=== PATIENT | male | born 1955 | race Caucasian/White ===

== ENCOUNTER 2019-01-09 15:00 | Inpatient (IN) ==
--- NOTE | 2019-01-09 16:00 | ED ---
HPI General Chief Complaint: Respiratory Symptoms Stated Complaint: cough congestion headache Time Seen by Provider: 01/09/19 15:50 Source: patient Mode of arrival: ambulatory Limitations: no limitations History of Present Illness HPI Narrative: 63-year-old male presents the ED for evaluation of 2-week history of cough. He states the cough is productive but "I cannot get it out." States "I was up all night coughing last night." He is a current smoker. He endorses feeling feverish but has not measured her temperature at home. He states that over the last few days he has had 8/10 aching pain in the left ear. No alleviating or exacerbating factors reported. He saw an urgent care provider at the beginning of this illness and took a course of steroids and an unknown antibiotic with no improvement of symptoms. Related Data Home Medications Medication Instructions Recorded Confirmed Unable to Obtain Home Meds 01/09/19 01/09/19 Allergies Allergy/AdvReac Type Severity Reaction Status Date / Time clarithromycin [From Biaxin] Allergy Severe Rash Verified 01/09/19 15:14 erythromycin base Allergy Severe Rash Verified 01/09/19 15:14 Penicillins Allergy Severe Rash Verified 01/09/19 15:12 [facility] Medical History Medical History Anxiety (Acute) Elevated cholesterol (Acute) GERD (gastroesophageal reflux disease) (Acute) Hearing difficulty of both ears (Acute) Hypertension (Acute) Surgical History Surgical History Hx of cholecystectomy (Acute) Hx of tonsillectomy (Acute) Social History Social History Substance History: No History of Abuse Smoking Status: Former smoker Tobacco Type: Cigarettes How Often Do You Have a Drink Containing Alcohol: Never Recent Travel in [facility] within the Last 8 Weeks: No Recent Out of Country Travel within the Last 8 Weeks: No Immunization History Tetanus Immunization: <5 Years Exam Narrative Exam Narrative: GENERAL: Ill-appearing white male in no acute distress. SKIN: Focused skin assessment warm/dry. HEAD: Atraumatic. Normocephalic. EYES: Pupils equal and round. No scleral icterus. No injection or drainage. ENT: Left tympanic membrane is erythematous, mildly bulging,consistent with otitis media. No nasal bleeding or discharge. Mucous membranes pink and moist. Oropharynx with mild posterior erythema. NECK: Trachea midline. No JVD. CARDIOVASCULAR: Regular rate and rhythm. No murmur appreciated. RESPIRATORY: No accessory muscle use. No crackles or wheezes. Breath sounds mildly diminished in the bases bilaterally. GASTROINTESTINAL: Abdomen soft, non-tender, nondistended. Hepatic and splenic margins not palpable. MUSCULOSKELETAL: No obvious deformities. No clubbing. No cyanosis. No edema. NEUROLOGICAL: Awake and alert. No obvious cranial nerve deficits. Motor grossly within normal limits. Normal speech. PSYCHIATRIC: Appropriate mood and affect; insight and judgment normal. Course Initial Documented Vital Signs Temperature 99.8 F H 01/09/19 15:14 Pulse Rate 108 H 01/09/19 15:14 Respiratory Rate 20 01/09/19 15:14 Blood Pressure 138/76 01/09/19 15:14 Pulse Oximetry 94 L 01/09/19 15:14 Last Documented Vital Signs Temperature 99.8 F H 01/09/19 15:14 Pulse Rate 107 H 01/09/19 17:33 Respiratory Rate 16 01/09/19 17:33 Blood Pressure 141/83 H 01/09/19 17:33 Pulse Oximetry 93 L 01/09/19 17:33 Medical Decision Making MONICA Attestation MONICA supervised visit: Yes Attestation: Patient was not seen by me or presented by advance practitioner, I was available for consult MDM Narrative Medical decision making narrative: 63-year-old male presents the ED for evaluation of 2-week history of cough, subjective fevers, left ear pain. Temp 99.8, pulse 108, pulse oximetry 94% with a respiratory rate of 20 on room air on presentation. Physical exam reveals an ill-appearing white male in no acute distress. There is a otitis media of the left ear and mildly reduced lung sounds in the bases without crackles or wheezes. Patient is a current smoker. X-ray reveals bilateral mostly basilar airspace disease most characteristic of bronchopneumonia per radiology read. IV was established. Blood cultures were obtained. Patient was administered IV fluids, Tylenol and Levaquin. No leukocytosis on CBC. Lactic acid 2.8. Pulse 107, respiratory rate 16, O2 saturations 93% on room air on recheck. Patient's agreeable to admission. I spoke with Dr. Lopez who agrees to accept the patient to the medicine service. Please see medicine notes for disposition. Medical Screen Exam Complete: Yes Emergency Medical Condition: Yes Differential Diagnosis Differential Diagnosis: Pneumonia versus failed outpatient treatment versus otitis media versus other Lab Data Result diagrams: 01/09/19 16:52 01/09/19 16:52 Lab Results 01/09/19 01/09/19 01/09/19 Range/Units 16:52 16:52 16:52 CBC w Diff Auto diff final WBC 9.9 (4.0-11.0) th/mm3 RBC 4.92 (4.50-5.90) mil/mm3 Hgb 15.4 (13.0-17.0) gm/dL Hct 46.3 (39.0-51.0) % MCV 94.2 (80.0-100.0) fL MCH 31.3 (27.0-34.0) pg MCHC 33.2 (32.0-36.0) % RDW 12.8 (11.6-17.2) % Plt Count 301 (150-450) th/mm3 MPV 8.3 (7.0-11.0) fL Neut % (Auto) 78.5 H (16.0-70.0) % Lymph % (Auto) 9.7 (9.0-44.0) % Marion % (Auto) 8.3 H (0.0-8.0) % Eos % (Auto) 0.2 (0.0-4.0) % Baso % (Auto) 3.3 H (0.0-2.0) % Neut # (Auto) 7.8 H (1.8-7.7) th/mm3 Lymph # (Auto) 1.0 (1.0-4.8) th/mm3 Marion # (Auto) 0.8 (0.0-0.9) th/mm3 Eos # (Auto) 0.0 (0.0-0.4) th/mm3 Baso # (Auto) 0.3 H (0.0-0.2) th/mm3 WBC Differential . Differential Comment . Sodium 137 (136-145) meq/L Potassium 3.4 L (3.5-5.1) meq/L Chloride 98 (98-107) meq/L Carbon Dioxide 29.6 (21.0-32.0) meq/L Anion Gap 9 (5-15) meq/L BUN 12 (7-18) mg/dL Creatinine 1.10 (0.60-1.30) mg/dL Estimated GFR 68 L (>89) mL/min Random Glucose 153 H (74-106) mg/dL Lactic Acid 2.8 H (0.4-2.0) mmol/L Calcium 9.3 (8.5-10.1) mg/dL Total Bilirubin 1.8 H (0.2-1.0) mg/dL AST 70 H (15-37) U/L ALT 92 H (12-78) U/L Alkaline Phosphatase 162 H (45-117) U/L Total Protein 7.8 (6.4-8.2) g/dL Albumin 3.0 L (3.4-5.0) g/dL Imaging Data Radiologist's impression: Chest X-Ray 01/09/19 15:55 CONCLUSION: Bilateral mostly basilar airspace disease most characteristic of bronchopneumonia. Discharge Plan Discharge Disposition Patient Disposition: ED Admit(ED Internal Use Only) Discharge Order Discharge Orders: ED Use Only Admit Order (Routine); Ordered 01/09/19 Ordered By: Yani Aguero Physicians Team ED Provider: Ajit Almanza ED Midlevel Provider: Yani Aguero Primary Care Provider: UNKNOWN, Attending Provider: Ruperto Lopez Status ED Status: Admitted Observation Patient
--- NOTE | 2019-01-09 16:24 | XR ---
EXAM DATE: 01/09/2019 4:18 PM EST AGE/SEX: 63 years / Male INDICATIONS: Cough. Congestion. CLINICAL DATA: This is the patient's initial encounter. Patient reports that signs and symptoms have been present for 2 weeks and indicates a pain score of 0/10. MEDICAL/SURGICAL HISTORY: None. None. COMPARISON: No prior exams available for comparison. FINDINGS: There is some basilar interstitial prominence in the lungs. Differential diagnosis includes bronchopn eumonia or less likely edema. Heart size within normal limits. Tortuous aorta. No significant effusio n. No pneumothorax. CONCLUSION: Bilateral mostly basilar airspace disease most characteristic of bronchopneumonia. Electronically signed by: Ajit King MD Board Certified Radiologist 01/09/2019 4:23 PM EST
[2019-01-09] MEDS ORDERED: Sod Chloride 0.9% Inj 1,000 ML IV.SIG ONE (16:31)
[2019-01-09] MEDS ORDERED: Acetaminophen 325 MG Tablet PO ONE (16:34)
[2019-01-09 16:59] LABS: Baso # (Auto) 0.3 th/mm3 (0.0-0.2); Baso % (Auto) 3.3 % (0.0-2.0); Eos % (Auto) 0.2 % (0.0-4.0); Hematocrit 46.3 % (39.0-51.0); Hemoglobin 15.4 gm/dL (13.0-17.0); Lymph % (Auto) 9.7 % (9.0-44.0); Mean Corpuscular HGB Conc 33.2 % (32.0-36.0); Mean Corpuscular Hemoglobin 31.3 pg (27.0-34.0); Mean Corpuscular Volume 94.2 fL (80.0-100.0); Mean Platelet Volume 8.3 fL (7.0-11.0); Mono # (Auto) 0.8 th/mm3 (0.0-0.9); Mono % (Auto) 8.3 % (0.0-8.0); Neut # (Auto) 7.8 th/mm3 (1.8-7.7); Neut % (Auto) 78.5 % (16.0-70.0); Platelet Count 301 th/mm3 (150-450); Red Blood Count 4.92 mil/mm3 (4.50-5.90); Red Cell Distribution Width 12.8 % (11.6-17.2); White Blood Count 9.9 th/mm3 (4.0-11.0)
[2019-01-09 17:12] LABS: Chloride 98 meq/L (98-107); Potassium 3.4 meq/L (3.5-5.1); Sodium 137 meq/L (136-145)
[2019-01-09 17:15] LABS: Calcium 9.3 mg/dL (8.5-10.1)
[2019-01-09 17:16] LABS: Anion Gap 9 meq/L (5-15); Blood Urea Nitrogen 12 mg/dL (7-18); Carbon Dioxide 29.6 meq/L (21.0-32.0); Glucose,Random 153 mg/dL (74-106)
[2019-01-09 17:19] LABS: Alanine Aminotransferase 92 U/L (12-78); Aspartate Aminotransferase 70 U/L (15-37); Glomerular Filtration Rate 68 mL/min (>89)
[2019-01-09 17:21] LABS: Total Protein 7.8 g/dL (6.4-8.2)
[2019-01-09 17:22] LABS: Alkaline Phosphatase 162 U/L (45-117)
[2019-01-09] MEDS ORDERED: Sodium Chlor 0.9% Inj 500 ML IV.SIG ONE (17:36)
[2019-01-09] MEDS: Heparin - SQ 10,000 UNITS/ML Vial SQ SCH (22:28)
[2019-01-09] MEDS: Acetaminophen 325 MG Tablet PO PRN (22:29)
[2019-01-10] MEDS: Acetaminophen 325 MG Tablet PO PRN ×2 (05:51→23:13)
[2019-01-10 06:26] LABS: Baso # (Auto) 0.1 th/mm3 (0.0-0.2); Baso % (Auto) 0.9 % (0.0-2.0); Eos % (Auto) 0.4 % (0.0-4.0); Hematocrit 41.8 % (39.0-51.0); Hemoglobin 14.2 gm/dL (13.0-17.0); Lymph # (Auto) 1.1 th/mm3 (1.0-4.8); Lymph % (Auto) 12.9 % (9.0-44.0); Mean Corpuscular HGB Conc 34.1 % (32.0-36.0); Mean Corpuscular Hemoglobin 32.2 pg (27.0-34.0); Mean Corpuscular Volume 94.5 fL (80.0-100.0); Mean Platelet Volume 8.8 fL (7.0-11.0); Mono % (Auto) 11.8 % (0.0-8.0); Neut # (Auto) 6.4 th/mm3 (1.8-7.7); Platelet Count 242 th/mm3 (150-450); Red Blood Count 4.42 mil/mm3 (4.50-5.90); Red Cell Distribution Width 12.8 % (11.6-17.2); White Blood Count 8.6 th/mm3 (4.0-11.0)
[2019-01-10 06:28] LABS: Chloride 101 meq/L (98-107); Potassium 3.3 meq/L (3.5-5.1); Sodium 138 meq/L (136-145)
[2019-01-10 07:04] LABS: Alanine Aminotransferase 72 U/L (12-78); Albumin 2.4 g/dL (3.4-5.0); Alkaline Phosphatase 138 U/L (45-117); Anion Gap 8 meq/L (5-15); Aspartate Aminotransferase 48 U/L (15-37); Blood Urea Nitrogen 11 mg/dL (7-18); Calcium 8.8 mg/dL (8.5-10.1); Glomerular Filtration Rate 83 mL/min (>89); Glucose,Random 107 mg/dL (74-106); Total Protein 6.4 g/dL (6.4-8.2)
[2019-01-10] MEDS: Heparin - SQ 10,000 UNITS/ML Vial SQ SCH ×3 (10:18→21:21)
[2019-01-10] MEDS: Lactobacillus Acidophilus/L. Spores Tablet PO SCH ×3 (10:19→17:14)
--- NOTE | 2019-01-10 11:53 | P.HPIM ---
History of Present Illness Primary Care Physician: UNKNOWN Chief Complaint: Worsening Cough History of Present Illness: Mr. Freeman is a 63-year-old male. He came in the hospital reporting worsening cough with hypertensive emesis. As an outpatient he had been treated for suspected bronchitis with Cefdinir. It appears that this treatment has failed. We find the patient has community-acquired pneumonia. Levaquin will be started as a treatment. He still having respiratory complaints including shortness of breath and cough. At time of admit he was tachycardic but he did not meet septic criteria. He does meet criteria for outpatient treatment failure. Close monitoring to ensure no resistance will be needed. No other complaints at this time. Review of Systems Constitutional: No fevers, no chills no night sweats, no fatigue, no weakness Eyes: No eye pain, no blurry vision, no loss of vision ENT: No sore throat, no ear pain, no rhinorrhea Cardiovascular: No chest pain, no tachycardia, no palpitations, no syncope Respiratory: No wheezing, cough, shortness of breath Gastrointestinal: No abdominal pain, no black tarry stools, no bright red blood per rectum, no vomiting, no diarrhea Musculoskeletal: No joint pain, no muscle cramps, no stiffness Integumentary: No rash, no ulcers, no drainage Neurologic: No sensory loss, no loss of motor function, no dizziness Psychiatric: No behavioral changes, no hallucinations, no suicidal ideations PMF Medical History Medical History Anxiety (Acute) Elevated cholesterol (Acute) GERD (gastroesophageal reflux disease) (Acute) Hearing difficulty of both ears (Acute) Hypertension (Acute) Surgical History Surgical History Hx of cholecystectomy (Acute) Hx of tonsillectomy (Acute) Family History Family History Other Osteoarthritis Social History Social History Substance History: No History of Abuse Second Hand Smoke Exposure: No Smoking Status: Former smoker Tobacco Type: Cigars How Often Do You Have a Drink Containing Alcohol: Never Recent Travel in [place] within the Last 8 Weeks: No Recent Out of Country Travel within the Last 8 Weeks: No Immunization History Tetanus Immunization: <5 Years Hx Influenza Vaccine This Season: No Medications and Allergies Allergies Allergy/AdvReac Type Severity Reaction Status Date / Time clarithromycin [From Biaxin] Allergy Severe Rash Verified 01/09/19 15:14 erythromycin base Allergy Severe Rash Verified 01/09/19 15:14 Penicillins Allergy Severe Rash Verified 01/09/19 15:12 Home Medications Medication Instructions Recorded Confirmed Type cefdinir 300 mg PO Q12H 01/10/19 01/10/19 History Active Medications: Active Medications Acetaminophen (Tylenol) 650 mg PO Q4H PRN PRN Reason: Temp > 100.4 Last Admin: 01/10/19 05:51 Dose: 650 mg Al Hydroxide/Mg Hydroxide (Milk Of Gaurav Moreno) 30 ml PO Q12H PRN PRN Reason: Mild Constipation Albuterol (Albuterol Neb (Prn)) 2.5 mg NEB Q4HR NEB PRN PRN Reason: Dyspnea or Wheeze Alprazolam (Xanax) 0.25 mg PO Q6H PRN PRN Reason: ANXIETY Heparin Sodium (Porcine) (Heparin Inj) 5,000 units SQ Q12HR [facility] Last Admin: 01/10/19 10:18 Dose: Not Given Levofloxacin/Dextrose (Levaquin 750 Mg Premix Inj) 150 mls @ 100 mls/hr IV.SIG Q24H [facility] Lactobacillus Acidophilus (Lactinex) 1 tab PO TID [facility] Last Admin: 01/10/19 10:19 Dose: 1 tab Ondansetron HCl (Zofran Inj) 4 mg IV.PUSH Q6H PRN PRN Reason: NAUSEA OR VOMITING Last Admin: 01/09/19 18:36 Dose: 4 mg Sodium Chloride (Ns Flush) 2 ml IV.FLUSH BID [facility] Last Admin: 01/10/19 10:19 Dose: 2 ml Sodium Chloride (Ns Flush) 2 ml IV.FLUSH PRN PRN PRN Reason: FLUSH AFTER USING IV ACCESS Physical Exam Vital signs: Vital Signs 01/09/19 15:14 01/09/19 16:30 01/09/19 17:33 Temperature 99.8 F H Pulse Rate 108 H 107 H Respiratory Rate 20 16 Blood Pressure 138/76 141/83 H Pulse Oximetry 94 L 95 93 L 01/09/19 19:14 01/09/19 19:15 01/09/19 20:00 Temperature 98.9 F 97.3 F L Pulse Rate 98 H 98 H Respiratory Rate 20 18 Blood Pressure 150/88 H 152/96 H Pulse Oximetry 93 L 93 L 93 L 01/09/19 20:25 01/10/19 00:00 01/10/19 04:00 Temperature 99.3 F 99.9 F H Pulse Rate 105 H 89 92 H Respiratory Rate 18 18 Blood Pressure 122/68 133/74 Pulse Oximetry 92 L 92 L 01/10/19 08:00 Temperature 98.3 F Pulse Rate 89 Respiratory Rate 20 Blood Pressure 139/85 Pulse Oximetry 94 L Intake & Output 01/09/19 01/10/19 01/10/19 18:59 06:59 18:59 Intake Total 1650 / 1650 480 / 480 Balance 1650 / 1650 480 / 480 Weight 80.6 kg 80.6 kg Intake: IV 1650 / 1650 Levaquin 750 mg Premix Inj 150 150 / 150 ML @ 100 mls/hr IV.SIG ONCE ONE Rx#:[id number] NS Inj 1,000 ML @ Wide Open IV. 1000 / 1000 SIG BOLUS ONE Rx#:[id number] NS Inj 500 ML @ Wide Open IV. 500 / 500 SIG BOLUS ONE Rx#:[id number] Oral Supplement 480 / 480 Other: # Voids 2 Narrative: GENERAL: NAD, A&Ox3 HEAD: Normocephalic. NECK: Supple, trachea midline. No lymphadenopathy. EYES: No scleral icterus. No injection or drainage. CARDIOVASCULAR: Regular rate and rhythm without murmurs, gallops, or rubs. RESPIRATORY: Breath sounds equal bilaterally. No accessory muscle use. Bilateral rhonchi. GASTROINTESTINAL: Abdomen soft, non-tender, nondistended. MUSCULOSKELETAL: No cyanosis, or edema. SKIN: Warm and dry. NEURO: No focal neurological deficits. Results Labs CBC & Chem 7: 01/10/19 05:40 01/10/19 05:40 Imaging Impressions Chest X-Ray 01/09/19 15:55 CONCLUSION: Bilateral mostly basilar airspace disease most characteristic of bronchopneumonia. Caprini VTE Risk Assessment Caprini VTE Risk Assessment: No/Low Risk (score <= 1) Caprini Risk Assessment Model: Point Value = 1 Point Value = 2 Point Value = 3 Point Value = 5 Age 41-60 Minor surgery BMI > 25 kg/m2 Swollen legs Varicose veins or History of unexplained or recurrent spontaneous Oral contraceptives or hormone replacement Sepsis (< 1 month) Serious lung disease, including pneumonia (< 1 month) Abnormal pulmonary function Acute myocardial infarction Congestive heart failure (< 1 month) History of inflammatory bowel disease Medical patient at bed rest Age 61-74 Arthroscopic surgery Major open surgery (> 45 min) Laparoscopic surgery (> 45 min) Malignancy Confined to bed (> 72 hours) Immobilizing plaster cast Central venous access Age >= 75 History of VTE Family history of VTE Factor V Leiden Prothrombin [id number] Lupus anticoagulant Anticardiolipin antibodies Elevated serum homocysteine Heparin-induced thrombocytopenia Other congenital or acquired thrombophilia Stroke (< 1 month) Elective arthroplasty Hip, pelvis, or leg fracture Acute spinal cord injury (< 1 month) Prophylaxis Regimen: Total Risk Factor Score Risk Level Prophylaxis Regimen 0-1 Low Early ambulation 2 Moderate Order ONE of the following: *Sequential Compression Device (SCD) *Heparin 5000 units SQ BID 3-4 Higher Order ONE of the following medications: *Heparin 5000 units SQ TID *Enoxaparin/Lovenox 40 mg SQ daily (WT < 150 kg, CrCl > 30 mL/min) *Enoxaparin/Lovenox 30 mg SQ daily (WT < 150 kg, CrCl > 10-29 mL/min) *Enoxaparin/Lovenox 30 mg SQ BID (WT < 150 kg, CrCl > 30 mL/min) AND/OR *Sequential Compression Device (SCD) 5 or more Highest Order ONE of the following medications: *Heparin 5000 units SQ TID (Preferred with Epidurals) *Enoxaparin/Lovenox 40 mg SQ daily (WT < 150 kg, CrCl > 30 mL/min) *Enoxaparin/Lovenox 30 mg SQ daily (WT < 150 kg, CrCl > 10-29 mL/min) *Enoxaparin/Lovenox 30 mg SQ BID (WT < 150 kg, CrCl > 30 mL/min) AND *Sequential Compression Device (SCD) Assessment and Plan Plan 63-year-old male admitted secondary to community-acquired pneumonia with outpatient treatment failure Tachycardia Resolving Community-acquired pneumonia Outpatient treatment failure Likely resistant to Cefdinir Substitute oxygen as needed Mucomyst as needed Albuterol as needed Robitussin as needed Continue Levaquin Monitor for benefit on Levaquin to ensure no resistance Past history of smoking Patient has not smoked for 2 weeks He is a intermittent cigar smoker No need for nicotine patch Patient counseled to quit smoking DVT prophylaxis SCDs Ambulation H&P: Quality VTE Deep Vein Thrombosis/Pulmonary Embolism Present on Admission: No
[2019-01-10] MEDS ORDERED: RESP: Acetylcysteine 10% 4 ML Neb NEB PRN (12:00)
[2019-01-10] MEDS: Butalbital/APAP/Caff 50/325/40 MG Tablet PO PRN (12:12)
[2019-01-10] MEDS: ALPRAZolam 0.25 MG Tablet PO PRN (21:16)
[2019-01-11] MEDS: Lactobacillus Acidophilus/L. Spores Tablet PO SCH ×3 (08:11→17:13)
[2019-01-11] MEDS: Heparin - SQ 10,000 UNITS/ML Vial SQ SCH ×2 (08:12→21:04)
[2019-01-11] MEDS: Butalbital/APAP/Caff 50/325/40 MG Tablet PO PRN (08:17)
--- NOTE | 2019-01-11 11:50 | P.PNIM ---
Subjective Interval history: Follow-up community-acquired pneumonia/failed outpatient therapy January 11, 2019patient seen and examined, currently afebrile still with nonproductive cough and thinks it is about to break up. Reports some minimal shortness of breath. Physical Exam Vital signs: Vital Signs 01/10/19 12:00 01/10/19 16:00 01/10/19 20:00 Temperature 98.5 F 97.8 F 99.4 F Pulse Rate 91 H 90 74 Respiratory Rate 20 20 18 Blood Pressure 137/89 142/87 H 144/90 H Pulse Oximetry 97 91 L 91 L 01/11/19 00:00 01/11/19 08:35 Temperature 100.9 F H 97.3 F L Pulse Rate 100 H 90 Respiratory Rate 20 18 Blood Pressure 142/79 H 148/95 H Pulse Oximetry 91 L 91 L Intake & Output 01/10/19 01/11/19 01/11/19 18:59 06:59 18:59 Intake Total 520 / 520 515 / 515 Balance 520 / 520 515 / 515 Weight 79.9 kg Intake: IV 150 / 150 Levaquin 750 mg Premix Inj 150 150 / 150 ML @ 100 mls/hr IV.SIG Q24H JENNIE Rx#:[id number] Oral 520 / 520 365 / 365 Other: # Voids 1 2 Narrative: GENERAL: NAD, A&Ox3 HEAD: Normocephalic. NECK: Supple, trachea midline. No lymphadenopathy. EYES: No scleral icterus. No injection or drainage. CARDIOVASCULAR: Regular rate and rhythm without murmurs, gallops, or rubs. RESPIRATORY: Breath sounds equal bilaterally. No accessory muscle use. Bilateral rhonchi. GASTROINTESTINAL: Abdomen soft, non-tender, nondistended. MUSCULOSKELETAL: No cyanosis, or edema. SKIN: Warm and dry. NEURO: No focal neurological deficits. Results Labs CBC & Chem 7: 01/10/19 05:40 01/10/19 05:40 Labs: Microbiology 01/09/19 16:52 Blood - Peripheral Aerobic Blood Culture - Preliminary No growth in 2 days 01/09/19 16:52 Blood - Peripheral Anaerobic Blood Culture - Preliminary No growth in 2 days 01/09/19 16:48 Blood - Peripheral Aerobic Blood Culture - Preliminary No growth in 2 days 01/09/19 16:48 Blood - Peripheral Anaerobic Blood Culture - Preliminary No growth in 2 days Assessment and Plan Plan 63-year-old man with Community-acquired pneumonia Outpatient treatment failure Mucomyst as needed Albuterol as needed Robitussin as needed Continue Levaquin pending culture report Past history of smoking Patient has not smoked for 2 weeks He is a intermittent cigar smoker No need for nicotine patch Patient counseled to quit smoking Hyperlipidemia Resume statin History of GERD resume Prilosec Hypertension resume outpatient medication DVT prophylaxis SCDs Ambulation Progress Note: Quality VTE Deep Vein Thrombosis/Pulmonary Embolism Present on Admission: No
[2019-01-11] MEDS: ALPRAZolam 0.25 MG Tablet PO PRN (21:04)
[2019-01-12] MEDS: Lactobacillus Acidophilus/L. Spores Tablet PO SCH ×3 (08:44→17:07)
[2019-01-12] MEDS: Heparin - SQ 10,000 UNITS/ML Vial SQ SCH ×2 (08:44→21:00)
--- NOTE | 2019-01-12 10:30 | P.PNIM ---
Subjective Interval history: Follow-up community-acquired pneumonia/failed outpatient therapy January 12, 2019patient seen and examined, complains of headaches however reports improvement of cough production as well as shortness of breath. Currently afebrile. Physical Exam Vital signs: Vital Signs 01/11/19 12:24 01/11/19 17:10 01/11/19 20:00 Temperature 96.4 F L 96.2 F L 99.3 F Pulse Rate 78 91 H 93 H Respiratory Rate 18 18 18 Blood Pressure 127/84 141/99 H 151/98 H Pulse Oximetry 94 L 92 L 94 L 01/12/19 00:00 01/12/19 08:00 Temperature 98.2 F 96.3 F L Pulse Rate 92 H 93 H Respiratory Rate 18 20 Blood Pressure 150/90 H 133/93 H Pulse Oximetry 92 L 91 L Intake & Output 01/11/19 01/12/19 01/12/19 18:59 06:59 18:59 Intake Total 1949 / 1949 480 / 480 Output Total 450 / 450 Balance 1949 / 1949 30 / 30 Weight 79.9 kg Intake: IV 150 / 150 Levaquin 750 mg Premix Inj 150 150 / 150 ML @ 100 mls/hr IV.SIG Q24H JENNIE Rx#:[id number] Oral 1800 / 1800 Oral Supplement 480 / 480 Output: Urine 450 / 450 Other: # Voids 10 Narrative: GENERAL: NAD, A&Ox3 HEAD: Normocephalic. NECK: Supple, trachea midline. No lymphadenopathy. EYES: No scleral icterus. No injection or drainage. CARDIOVASCULAR: Regular rate and rhythm without murmurs, gallops, or rubs. RESPIRATORY: Breath sounds equal bilaterally. No accessory muscle use. Bilateral rhonchi. GASTROINTESTINAL: Abdomen soft, non-tender, nondistended. MUSCULOSKELETAL: No cyanosis, or edema. SKIN: Warm and dry. NEURO: No focal neurological deficits. Results Labs CBC & Chem 7: 01/10/19 05:40 01/10/19 05:40 Labs: Microbiology 01/09/19 16:52 Blood - Peripheral Aerobic Blood Culture - Preliminary No growth in 2 days 01/09/19 16:52 Blood - Peripheral Anaerobic Blood Culture - Preliminary No growth in 2 days 01/09/19 16:48 Blood - Peripheral Aerobic Blood Culture - Preliminary No growth in 2 days 01/09/19 16:48 Blood - Peripheral Anaerobic Blood Culture - Preliminary No growth in 2 days Assessment and Plan Plan 63-year-old man with Community-acquired pneumonia Outpatient treatment failure Mucomyst as needed Albuterol as needed Robitussin as needed Continue Levaquin Past history of smoking Patient has not smoked for 2 weeks He is a intermittent cigar smoker No need for nicotine patch Patient counseled to quit smoking Hyperlipidemia Resume statin History of GERD resume Prilosec Hypertension resume outpatient medication Headaches Tylenol as needed DVT prophylaxis SCDs Ambulation Progress Note: Quality VTE Deep Vein Thrombosis/Pulmonary Embolism Present on Admission: No
[2019-01-12] MEDS: Butalbital/APAP/Caff 50/325/40 MG Tablet PO PRN (15:12)
[2019-01-13] MEDS: ALPRAZolam 0.25 MG Tablet PO PRN (00:47)
[2019-01-13] MEDS: Lactobacillus Acidophilus/L. Spores Tablet PO SCH (09:02)
[2019-01-13] MEDS: Heparin - SQ 10,000 UNITS/ML Vial SQ SCH (09:03)
--- NOTE | 2019-01-13 09:05 | P.PNIM ---
Subjective Interval history: Follow-up community-acquired pneumonia/failed outpatient therapy January 13, 2019patient seen and examined, reports significant improvement of shortness of breath and well-being. Ready for discharge home. Currently afebrile. Physical Exam Vital signs: Vital Signs 01/12/19 12:00 01/12/19 16:00 01/12/19 20:00 Temperature 96.9 F L 96.4 F L 97.4 F L Pulse Rate 81 84 78 Respiratory Rate 20 20 20 Blood Pressure 153/91 H 144/90 H 155/102 H Pulse Oximetry 94 L 91 L 95 01/13/19 00:00 Temperature 97.1 F L Pulse Rate 90 Respiratory Rate 20 Blood Pressure 143/105 H Pulse Oximetry 94 L Intake & Output 01/12/19 01/13/19 01/13/19 18:59 06:59 18:59 Intake Total 4000 / 4000 150 / 150 Balance 4000 / 4000 150 / 150 Weight 77.9 kg Intake: IV 150 / 150 Levaquin 750 mg Premix Inj 150 150 / 150 ML @ 100 mls/hr IV.SIG Q24H JENNIE Rx#:[id number] Oral 4000 / 4000 Other: # Voids 10 4 Date of Last Bowel Movement 01/12/19 Narrative: GENERAL: NAD, A&Ox3 HEAD: Normocephalic. NECK: Supple, trachea midline. No lymphadenopathy. EYES: No scleral icterus. No injection or drainage. CARDIOVASCULAR: Regular rate and rhythm without murmurs, gallops, or rubs. RESPIRATORY: Breath sounds equal bilaterally. No accessory muscle use. Bilateral rhonchi. GASTROINTESTINAL: Abdomen soft, non-tender, nondistended. MUSCULOSKELETAL: No cyanosis, or edema. SKIN: Warm and dry. NEURO: No focal neurological deficits. Results Labs CBC & Chem 7: 01/10/19 05:40 01/10/19 05:40 Labs: Microbiology 01/09/19 16:52 Blood - Peripheral Aerobic Blood Culture - Preliminary No growth in 3 days 01/09/19 16:52 Blood - Peripheral Anaerobic Blood Culture - Preliminary No growth in 3 days 01/09/19 16:48 Blood - Peripheral Aerobic Blood Culture - Preliminary No growth in 3 days 01/09/19 16:48 Blood - Peripheral Anaerobic Blood Culture - Preliminary No growth in 3 days Assessment and Plan Plan 63-year-old man with Community-acquired pneumonia Outpatient treatment failure Mucomyst as needed Albuterol as needed Robitussin as needed Continue Levaquin Past history of smoking Patient has not smoked for 2 weeks He is a intermittent cigar smoker Continue nicotine patch Patient counseled to quit smoking Hyperlipidemia Resume statin History of GERD resume Prilosec Hypertension resume outpatient medication Headaches Tylenol as needed DVT prophylaxis SCDs Ambulation Progress Note: Quality VTE Deep Vein Thrombosis/Pulmonary Embolism Present on Admission: No
--- NOTE | 2019-01-13 09:08 | P.DS ---
DS: Providers Date of admission: 01/10/19 11:48 Primary care physician: UNKNOWN Consults: 01/11/19 18:00 HUB Only Consult Order Routine Consulting Provider: Juan Martinez Brief History from admission: Mr. Freeman is a 63-year-old male. He came in the hospital reporting worsening cough with hypertensive emesis. As an outpatient he had been treated for suspected bronchitis with Cefdinir. It appears that this treatment has failed. We find the patient has community- acquired pneumonia. Levaquin will be started as a treatment. He still having respiratory complaints including shortness of breath and cough. At time of admit he was tachycardic but he did not meet septic criteria. He does meet criteria for outpatient treatment failure. Close monitoring to ensure no resistance will be needed. No other complaints at this time. DS: Summary Patient admitted secondary to community-acquired pneumonia and failed outpatient therapy, was started on IV Levaquin with improvement of respiratory symptoms. Culture were all monitored. DVT prophylaxis were provided. Patient condition subsequently improved and vitals remained stable. Will be discharged home on p.o. antibiotics. Time spent discussing smoking cessation with patient: more than 10 minutes Time Spent with Patient Total time spent providing and/or coordinating discharge services: Greater than 30 minutes Quality: VTE Deep Vein Thrombosis/Pulmonary Embolism Present on Admission: No Exam Narrative Exam Narrative: GENERAL: NAD SKIN: Warm and dry. HEAD: Atraumatic. Normocephalic. EYES: Pupils equal and round. No scleral icterus. No injection or drainage. ENT: No nasal bleeding or discharge. Mucous membranes pink and moist. NECK: Trachea midline. No JVD. CARDIOVASCULAR: Regular rate and rhythm. RESPIRATORY: No accessory muscle use. Clear to auscultation. Breath sounds equal bilaterally. GASTROINTESTINAL: Abdomen soft, non-tender, nondistended. Hepatic and splenic margins not palpable. MUSCULOSKELETAL: Extremities without clubbing, cyanosis, or edema. No obvious deformities. NEUROLOGICAL: Awake and alert. No obvious cranial nerve deficits. Motor grossly within normal limits. Five out of 5 muscle strength in the arms and legs. Normal speech. PSYCHIATRIC: Appropriate mood and affect; insight and judgment normal. Results Labs on day of discharge: Preliminary micro results at discharge 01/09/19 16:52 Aerobic Blood Culture - Preliminary Blood - Peripheral No growth in 3 days Anaerobic Blood Culture - Preliminary No growth in 3 days 01/09/19 16:48 Aerobic Blood Culture - Preliminary Blood - Peripheral No growth in 3 days Anaerobic Blood Culture - Preliminary No growth in 3 days Impressions ITS Impressions Chest X-Ray 01/09/19 15:55 CONCLUSION: Bilateral mostly basilar airspace disease most characteristic of bronchopneumonia. Discharge Plan Discharge Disposition Patient Disposition: 01 Discharge Home Discharge Order Discharge Orders: Discharge Order (Routine); Ordered 01/13/19 Ordered By: David Fox ED Use Only Admit Order (Routine); Ordered 01/09/19 Ordered By: Yani Aguero Physicians Team ED Provider: Ajit Almanza ED Midlevel Provider: Yani Aguero Primary Care Provider: BUD, Attending Provider: David Fox Other Providers: Juan Martinez Rxs /Orders / Referrals /Forms Prescriptions: New guaifenesin 100 mg/5 mL Liquid 200 mg PO Q6HR PRN (Reason: Cough) Qty: 20 RF: 0 levofloxacin [Levaquin] 750 mg tablet 750 mg PO DAILY 5 Days Qty: 5 RF: 0 Discontinued cefdinir 300 mg Capsule 300 mg PO Q12H RF: 0 Referrals: UNKNOWN, [Primary Care Provider] - See Instructions Discharge Interventions Interventions: Discharge Planning - Case Management Last Done: 01/10/19 14:26 Status ED Status: Left Department
[2019-01-13 10:22] VITALS: BP 129/91; PULSE 93; RESP 17; TEMP 97.6; O2SAT 92
== END 2019-01-13 11:36 | disposition home or self-care (01) | DRG 195 ==
LOC: PHEDA 15:00 → PHEFT 15:00 → PH3 20:00
PROVIDERS: ADMIT Hospitalist; ATTEND Hospitalist
CPT/HCPCS: 71010; 71045; 80053; 83605; 85025; 87040; 87275; 87276; 87804; 90765; 96365; 96366; 96372; 96375; 99285; G0378; J1644; J1956; J2405; J7030; J7040